=== PATIENT | female | born 1950 | race Caucasian/White ===

== ENCOUNTER 2024-08-27 11:49 | Day surgery (SDC) | payer MEDICARE ==
[2024-08-25 10:33] VITALS: BMI 22.4
[2024-08-27 13:09] VITALS: TEMP 98.4
[2024-08-27] MEDS: LACTATED RINGERS 1,000 ML IV SCH (13:09)
[2024-08-27] MEDS: IV FLUID CONTINUATION 1,000 ML IV ONE (13:10)
[2024-08-27] MEDS: LIDOCAINE 1% (10MG/ML) FOR IV START INTRADERMA STA (13:10)
[2024-08-27] MEDS ORDERED: PROPOFOL 10 MG/ML 20 ML VIAL IV ONE (13:48)
--- NOTE | 2024-08-27 14:15 | P.PCN ---
Date of Procedure: 08/27/24 Procedure(s) Performed: BRIEF HISTORY: Patient is a 74-year-old pleasant white female scheduled for an elective colonoscopy as a part of screening for colon cancer/positive Cologuard. PROCEDURE PERFORMED: Colonoscopy with biopsy, snare polypectomy and Endo Clip placement. PREOPERATIVE DIAGNOSIS: Screening for colon cancer/positive Cologuard. IV sedation per Anesthesia. PROCEDURE: After informed consent was obtained, the patient, was brought into the endoscopy unit. IV sedation was administered by Anesthesia under continuous monitoring. Digital rectal examination was normal. Initially the Olympus CF-160 flexible video colonoscope was then inserted in the rectum, gradually advanced into the cecum without any difficulty. Careful examination was performed as the scope was gradually being withdrawn. Ileocecal valve and the appendiceal orifice were visualized and appeared normal. Prep was excellent. Mucosa of the cecum had a 4 to 5 mm flat polyp that was removed by cold biopsy. In the ascending colon there was a 2 cm broad-based polyp that was removed by piecemeal snare polypectomy and complete polypectomy accomplished. Rest of the, ascending colon, transverse colon, descending colon, sigmoid colon, and rectum appeared normal. Scattered sigmoid diverticulosis. Retroflexion was performed in the rectum and no lesions were seen. The patient tolerated the procedure well. IMPRESSION: 5 mm flat cecal polyp status post cold biopsy 2 cm broad-based ascending colon polyp status post piecemeal snare polypectomy followed by ductal placement and complete polypectomy accomplished Scattered sigmoid diverticulosis RECOMMENDATIONS: Findings of this examination were discussed with the patient as well as her family.. She was advised to follow-up with the biopsy results. If the biopsy reveals adenoma she can have repeat colonoscopy in 3 years.
[2024-08-27 14:24] VITALS: RESP 18
[2024-08-27 15:23] VITALS: BP 137/64; PULSE 78
== END 2024-08-27 15:28 | disposition home or self-care (01) ==
LOC: ORWHC2ENDO 11:49
PROVIDERS: ATTEND Internal Medicine Gastroenterology
DX: Z12.11 Encounter for screening for malignant neoplasm of colon (principal); D12.0 Benign neoplasm of cecum; D12.2 Benign neoplasm of ascending colon; K57.30 Diverticulosis of large intestine without perforation or abscess without bleeding; R19.5 Other fecal abnormalities; Z80.0 Family history of malignant neoplasm of digestive organs; E78.5 Hyperlipidemia, unspecified; F17.210 Nicotine dependence, cigarettes, uncomplicated; Z90.49 Acquired absence of other specified parts of digestive tract; Z79.899 Other long term (current) drug therapy
CPT/HCPCS: 88305; 45380; 45385; J2704